=== PATIENT | female | born 1995 | race Caucasian/White ===

== ENCOUNTER → 2018-02-02 | Emergency (ER) | payer OTHER ==
[~2018-02-02] VITALS: Ht 165.1 cm; Wt 61.7 kg
== END | disposition home or self-care (01) ==
LOC: ER 16:41
DX: S69.81XA Other specified injuries of right wrist, hand and finger(s), initial encounter (principal); V49.88XA Car occupant (driver) (passenger) injured in other specified transport accidents, initial encounter; M62.838 Other muscle spasm; Y93.89 Activity, other specified; Y92.89 Other specified places as the place of occurrence of the external cause; Y99.8 Other external cause status

== ENCOUNTER 2021-02-16 23:14 | Emergency (ER) | payer OTHER ==
[~2021-02-16] VITALS: Ht 167.6 cm; Wt 62.1 kg
[2021-02-17] MEDS ORDERED: KETO10TA2 PO (04:55)
[2021-02-17] MEDS ORDERED: BACTRIM 400-801 EACH PO ×2 (04:55)
== END 2021-02-17 05:10 ==
LOC: ER 23:14
DX: L03.317 Cellulitis of buttock (principal)